=== PATIENT | male | born 1995 | race Caucasian/White ===

== ENCOUNTER 2018-08-15 10:48 | Emergency (ER) | payer OTHER ==
[2018-08-15 12:25] VITALS: BP 133/75
--- NOTE | 2018-08-15 12:28 | UC ---
Hand/Wrist HPI - HPI Summary HPI Summary: Patient is 23 year old male who is a student at [employer] , without any significant past medical history present today with left index finger injury since yesterday. He had a taekwondo tournament yesterday and injured left 2nd finger. He is not exactly sure of the injury but he thinks he jammed his finger. pt also c/o rt foot bruising that he would also like to be looked at. There is Swelling and bruising of the distal aspect of the left index finger no treatment done so far. He also reports right foot pain with associated bruising and swelling dorsally and that happened yesterday as well. Mechanism involves kicking the appointment at the same time and their foot clashed each other. He is able to bear weight and walk around but notices pain. Points to the dorsal aspect of the foot distally. Also has left foot bruising and swelling and this third and the fourth metatarsal area , this is minimal and does not hurt him much - History Of Current Complaint Chief Complaint: UCUpperExtremity Stated Complaint: FINGER INJURY Time Seen by Provider: 08/15/18 12:25 Hx Obtained From: Patient Pain Intensity: 1 - Allergies/Home Medications Allergies/Adverse Reactions: Allergies Allergy/AdvReac Type Severity Reaction Status Date / Time No Known Allergies Allergy Verified 08/15/18 12:25 Home Medications: Home Medications NK [No Home Medications Reported] 08/15/18 [History Confirmed 08/15/18] PMH/Surg Hx/FS Hx/Imm Hx Previously Healthy: Yes Other Endocrine History: negative Other Cardiovascular History: negative Other Respiratory History: negative Other GI/ History: negative Other Neurological History: negative Other Psychological History: negative Other Cancer History: negative - Surgical History Surgical History: Yes Surgery Procedure, Year, and Place: Right knee 2 years ago- arthroscopy - Social History Alcohol Use: Occasionally Substance Use Type: None Smoking Status (MU): Never Smoked Tobacco Review of Systems Constitutional: Fever Skin: Bruising - Left finger and bilateral feet Eyes: Negative ENT: Negative Respiratory: Negative Cardiovascular: Negative Gastrointestinal: Negative Genitourinary: Negative Motor: Negative Neurovascular: Negative Musculoskeletal: Arthralgia - Left index finger and bilateral feet, Decreased ROM - Left index finger, Edema Neurological: Negative Psychological: Negative Is Patient Immunocompromised?: No All Other Systems Reviewed And Are Negative: Yes Physical Exam - Summary Physical Exam Summary: Physical Exam: Const: Appears well. No signs of apparent distress present. Alert and oriented x 3. Musculo: Walks with a normal gait without any antalgia Head/Face: Atraumatic, normocephalic on inspection. Eyes: EOMI and PERRLA in both eyes. Conjunctivae clear. No discharge noted ENT: Hearing normal, TM normal appearing bilaterally . Respiratory: Respirations are unlabored. Lungs clear to auscultation bilaterally, no wheezing , rhonchi or rales noted . CVS: Regular rate and Rhythm, S1S2 normal , no murmurs identified. Extremities: Peripheral circulation is grossly normal. Pulses 2+ Abdomen : Soft non tender , nondistended , Bowel sounds present . No guarding , rebound tenderness or rigidity noted. Skin: No lesions or rash located on the upper extremities or on the lower extremities. Neuro: Cranial nerves II to XII intact, motor and sensory intact. DTR Intact bilaterally. Mood is normal. Affect is normal. Left index finger: Bruising and edema noted at the DIP and the middle phalanx area. There is tenderness to palpation at the DIP and the middle phalanx. Limited range of motion at the DIP joint Flexor and extensor tendon appear intact Right foot: Swelling is noted at the dorsal aspect of the mid to distal foot. There is bruising from second to fourth MTP joint. There is tenderness to palpation at the third metatarsal Left foot: Small amount of bruise noted at the third and the fourth toe, not significantly swollen, not much tender Triage Information Reviewed: Yes Vital Signs: Initial Vital Signs Temp 98.4 F 08/15/18 12:22 Pulse 71 08/15/18 12:22 Resp 18 08/15/18 12:22 BP 133/75 08/15/18 12:22 Pulse Ox 100 08/15/18 12:22 Vital Signs Reviewed: Yes Diagnostics - Laboratory Diagnostic Studies Completed/Ordered: X-ray of the bilateral feet and left index finger done: Reviewed by ED physician and the radiologist. Final report of the x-ray of the left index finger was available after the patient had left but this was same as discussed with the patient. Hand/Wrist Course/Dx - Course Course Of Treatment: During the visit today, we obtained bilateral foot and the left index finger x-rays: Final read: Left index finger ANGULATED FRACTURE OF THE HEAD OF THE SECOND MIDDLE PHALANX. Bilateral foot: NO ACUTE OSSEOUS INJURY BILATERALLY. IF SYMPTOMS PERSIST, RECOMMEND REPEAT IMAGING. AlumaFoam splint was applied to the left index finger to stabilize the fracture. We discussed the findings and further plan and he will follow up with hand surgeon for the left finger fracture. Left foot pain is likely secondary to contusion and he can ice it and ibuprofen as needed. Final report of the x-ray of the left index finger was available after the patient had left but this was same as discussed with the patient. Patient expressed understanding . - Differential Dx/Diagnosis Provider Diagnoses: ANGULATED FRACTURE OF THE HEAD OF THE SECOND MIDDLE PHALANX. Contusion of the bilateral feet Discharge - Sign-Out/Discharge Documenting (check all that apply): Patient Departure All imaging exams completed and their final reports reviewed: Yes - Discharge Plan Condition: Stable Disposition: HOME Patient Education Materials: Finger Fracture (ED), Foot Contusion (ED) Referrals: Angel Luis Null MD [Medical Doctor] - No Primary Care Phys,NOPCP [Primary Care Provider] - Additional Instructions: Please take ibuprofen as needed for pain. Continue to keep the splint on Follow up with hand surgeon within 2 days Return to Urgent care / ER if symptoms get worse. - Billing Disposition and Condition Condition: STABLE Disposition: Home
--- NOTE | 2018-08-15 13:18 | RAD ---
HISTORY: kicked and hit opponent in [employer] match COMPARISONS: None VIEWS: 6 , Frontal, lateral, and oblique views of the right foot obtained of the left foot FINDINGS: Right: BONE DENSITY: Normal. BONES: There is no displaced fracture. JOINTS: There is no arthropathy. ALIGNMENT: There is no dislocation. The alignment is anatomic. SOFT TISSUES: Unremarkable. Left: BONE DENSITY: Normal. BONES: There is no displaced fracture. JOINTS: There is no arthropathy. ALIGNMENT: There is no dislocation. The alignment is anatomic. SOFT TISSUES: Unremarkable. OTHER FINDINGS: None. IMPRESSION: NO ACUTE OSSEOUS INJURY BILATERALLY. IF SYMPTOMS PERSIST, RECOMMEND REPEAT IMAGING.
--- NOTE | 2018-08-15 14:50 | RAD ---
HISTORY: finger jammed hit opponent in [employer] COMPARISONS: None VIEWS: 3 , Frontal, lateral, and oblique views of the second digit of the left hand FINDINGS: BONE DENSITY: Normal. BONES: There is a transverse, dorsally angulated fracture of the head of the middle phalanx of the second digit JOINTS: There is no arthropathy. ALIGNMENT: There is no dislocation. SOFT TISSUES: Unremarkable. OTHER FINDINGS: None. IMPRESSION: ANGULATED FRACTURE OF THE HEAD OF THE SECOND MIDDLE PHALANX
== END 2018-08-15 14:08 | disposition home or self-care (01) ==
LOC: UCEAST 10:48
DX: S62.651A Nondisplaced fracture of middle phalanx of left index finger, initial encounter for closed fracture (principal); X58.XXXA Exposure to other specified factors, initial encounter; S90.32XA Contusion of left foot, initial encounter; S90.31XA Contusion of right foot, initial encounter; W51.XXXA Accidental striking against or bumped into by another person, initial encounter; Y93.75 Activity, martial arts; Y92.9 Unspecified place or not applicable
CPT/HCPCS: 73140; 99201; G0463

== ENCOUNTER 2018-08-20 12:45 | Day surgery (SDC) | payer OTHER, BC ==
--- NOTE | 2018-08-18 19:25 | HP ---
AMENDED REPORT NOW INCLUDES DESIGNATED COSIGNER HISTORY AND PHYSICAL: DATE OF ADMISSION/SURGERY: 08/20/18 - OR EAST DATE OF OFFICE VISIT: 08/18/18 ATTENDING PHYSICIAN: Dr. Anisha Case * (DICTATED BY LEANNE CONSTANTINO) PROCEDURE: Left index finger phalanx closed reduction and percutaneous fixation. CHIEF COMPLAINT: Left index finger pain. HISTORY OF PRESENT ILLNESS: Evan is a 23-year-old right-hand dominant male who is a student outreach coordinator at [employer] who complains of a 4-day history of left index finger pain, which started when he was at a [employer] competition. During the scoring match, he is not sure exactly what happened, but he feels like he was kicked in the hand causing him pain into the left index finger. He states that putting pressure on the finger makes the pain worse. He rates the pain as 2/ 10. He was seen at [facility] on 08/15/18 where x-rays were obtained, which revealed a fracture. He was placed in a AlumaFoam splint and referred for orthopedic evaluation. He denies any numbness or tingling. PAST MEDICAL HISTORY: Negative. PAST SURGICAL HISTORY: Right knee surgery in February 2015. MEDICATIONS: None. ALLERGIES: No known drug allergies. No allergies to latex or tape. FAMILY HISTORY: High blood pressure. SOCIAL HISTORY: He lives with 2 housemates. 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 He denies tobacco use. Consumes 1 alcoholic beverage per week and denies recreational drug use. REVIEW OF SYSTEMS: A complete 14-point review of systems was obtained. General : Negative for fevers, chills, night sweats. No known anesthesia problems. HEENT: Negative for headaches, lightheadedness, or syncopal episodes. Integumentary System: Negative for abrasions, lesions, or open wounds. Cardiothoracic: Negative for chest pain, palpitations, or edema. Negative for hypertension. Pulmonary: Negative for shortness of breath with exertion, chronic cough, COPD. GI: Negative for nausea, vomiting, diarrhea, constipation , or GERD. : Negative for nocturia, urinary frequency, urinary urgency, history of UTIs, kidney problems. Musculoskeletal: Positive for current complaint. Negative for chronic or intermittent back pain or previous fractures. Neuro: Negative for paresthesias, numbness, history of seizure, stroke, or epilepsy. Endocrine: Negative for diabetes or thyroid issues. Hematologic: Negative for easy bruising or bleeding, anemia, excessive bleeding , or history of DVT. ID: Negative for history of MRSA, hep C, or HIV. PHYSICAL EXAMINATION GENERAL: Well-developed, well-nourished 23-year-old male, in no acute distress. VITAL SIGNS: Height 73 inches, weight 166 pounds. Blood pressure is 116/72, respirations 15, temperature is 96.3. BMI of 21.9. HEENT: Head is normocephalic, atraumatic. NECK: Supple with no palpable lymph nodes. Throat is clear. PULMONARY: Lungs are clear to auscultation bilaterally. No wheezes, rales, or rhonchi. CARDIAC: Regular rate and rhythm. S1, S2. No murmurs, rubs, or gallops. No edema. ABDOMEN: Positive bowel sounds throughout. Soft, nontender. MUSCULOSKELETAL: Left upper extremity, there is soft tissue swelling and bruising of the left index finger. He does have angular and rotational deformity at the tip of the finger. He is tender just proximal to the DIP joint on the middle phalanx. Sensation is intact to light touch distally. 2+ radial pulse. NEUROLOGIC: Alert and oriented x3. Cranial nerves II through XII are grossly intact. Sensation intact to light touch distally. DIAGNOSTIC STUDIES: X-rays taken on 08/15/18 at [facility] were reviewed by Dr. Case did reveal a displaced fracture of the middle phalanx of the left index finger. IMPRESSION: Displaced middle phalanx fracture of the left index finger. PLAN: The patient is scheduled to undergo left index finger middle phalanx closed reduction and percutaneous fixation. This will be scheduled on . A prescription for hydrocodone will be sent to the patient's pharmacy for post-operative pain management. The patient will follow up in the office 10 to 14 days postoperatively for followup x-rays. LEANNE CONSTANTINO [id number]/[facility] #: [id number] [facility] CENTERUlices
[~2018-08-20 12:45] MED LIST: Buffered Lidocaine 0.9% SYRIN* 5 ML/SYR SYRINGE INTRADERM ONE; Dexamethasone TAB* 4 MG ONE; Dexamethasone TAB* 4 MG PO ONE; DiMENhydriNATE IV* 50 MG/ML VIAL IV PUSH PRN; KETAMINE HCL* 50 MG/ML 10 ML VIAL ONE; Midazolam* 1 MG/ML 5 ML VIAL (5 MG) ONE; Morphine VIAL* 4 MG/ML VIAL (1 ml vial) IV PRN; Naloxone* 0.4 MG/ML 1 ML VIAL IV PRN; Ondansetron ODT TAB* 4 MG ONE; Ondansetron TAB* 4 MG PO ONE; PROCHLORPERAZINE INJ 5 MG/ML 2 ML VIAL IV PRN; Scopolamine 1.5 mg* PATCH TRANSDERM PRN; ceFAZolin 2 GM PREMIX in ORs 2 GM/50 ML BAG IVPB ONE; fentaNYL* 50 MCG/ML 2 ML VIAL (100 MCG VIAL) IV PRN; fentaNYL* 50 MCG/ML 2 ML VIAL (100 MCG VIAL) ONE; oxyCODONE/Acetamin 5/325 MG* TAB PO PRN
[2018-08-20] MEDS ORDERED: Lidocaine 1% INJ* 10 MG/ML 30 ML SDV ONE (13:15)
[2018-08-20] MEDS ORDERED: Lidocaine 2% PF * 5 ML VIAL ONE (13:29)
[2018-08-20] MEDS ORDERED: Ketorolac INJ* 30 MG/ML 1 ML VIAL ONE (13:29)
[2018-08-20] MEDS ORDERED: Propofol* 10 MG/ML 20 ML BTL IV PUSH ONE (13:29)
[2018-08-20] MEDS ORDERED: HYDROcodone/ACETAMIN 5-325 MG* 1 TAB ONE (14:43)
[2018-08-21 01:11] VITALS: BP 124/75
--- NOTE | 2018-08-21 06:38 | OP ---
DATE OF OPERATION: 08/20/18 [facility] DATE OF : [birth year] SURGEON: Anisha Case MD. QUALITY HEAD: LEANNE Fernández. ANESTHESIA: General. PRE-OP DIAGNOSIS: Left index finger middle phalanx fracture, which is displaced. POST-OP DIAGNOSIS: Left index finger middle phalanx fracture, which is displaced. OPERATIVE PROCEDURE: Closed reduction percutaneous pinning, left index finger middle phalanx fracture. ESTIMATED BLOOD LOSS: Zero. INDICATION FOR PROCEDURE: Evan is a 23-year-old male, who injured his left index finger doing taekwondo. X-ray shows a displaced fracture of his middle phalanx. He presents for closed reduction pinning. DESCRIPTION OF PROCEDURE: The patient was brought to the operating room, was given a general anesthetic, and placed in the supine position on the operating table. The skin of his left upper extremity was prepped and draped in the usual sterile fashion. The fracture was manipulated and reduced and anatomic alignment was achieved. Crossing 0.035-inch K-wires were then placed through the distal fragment into the proximal fragment. The position of the K-wires and fracture fragments were checked on the C-arm in the AP and lateral views and found to be anatomic. The pins were dressed with caps, Xeroform, 4x4, Webril , and an Alumafoam splint. The patient tolerated the procedure well and was brought to the recovery room in good condition. [id number]/[facility] #: [id number] MTDD
[2018-08-23] MEDS ORDERED: Scopolamine PATCH Remove* 1 NOTE MISC PATCH OFF ONE (05:59)
--- NOTE | 2018-08-24 16:43 | RAD ---
CPT II Codes: G9500 INDICATION: Traumatic index finger injury of the left hand Fluoroscopic services provided for referring physician. 59 seconds of fluoroscopy time was used. 2 spot image demonstrates percutaneous pinning and reduction of the previously identified fracture of the distal end of the middle phalanx of the second digit. IMPRESSION: Fluoroscopic services provided for referring physician for reduction of previously identified fracture of the distal end of the middle phalanx of the second digit.
== END 2018-08-20 15:08 | disposition home or self-care (01) ==
LOC: OREAST 12:45
PROVIDERS: ATTEND Orthopaedic Surgery
DX: S62.621A Displaced fracture of middle phalanx of left index finger, initial encounter for closed fracture (principal); X58.XXXA Exposure to other specified factors, initial encounter
CPT/HCPCS: 76000; A9270-GY; C1776; J0690; J1885; J2250; J2704; J3010; J8540